=== PATIENT | male | born 1960 | race Caucasian/White ===

== ENCOUNTER 2016-08-04 13:50 | Emergency (ER) | payer OTHER ==
[2016-08-04] MEDS ORDERED: NORMAL SALINE 1000 ML 1,000 ML IV ONE (15:52)
--- NOTE | 2016-08-04 15:53 | ER Document Report ---
ED Medical Screen (RME) - General TRAVEL OUTSIDE OF THE [place] IN LAST 30 DAYS: No <KYLER AGUILAR - Last Filed: 08/04/16 16:13> <MARIALUISA DAVIS - Last Filed: 08/04/16 21:27> - General Chief Complaint: High Blood Sugar Stated Complaint: BLOOD SUGAR CONCERNS Time Seen by Provider: 08/04/16 15:40 Notes: 55-year-old male with history of diabetes and endocarditis (2006) presents to the ED complaining of vomiting, diarrhea, lower abdominal pain, dizziness, and lightheadedness for the past week. Patient is additionally complaining of a headache between bilateral temples, blurry vision, and shortness of breath with exertion. Patient denies any chest pain. Patient reports that today he woke up at 0300 and proceeded to vomiting profusely. Up until 1.5 months ago the patient's blood glucose was stable, however it has been running high since then. Patient reports that 2 nights ago his blood glucose was higher than 400, so he took his medications and rested in bed. Patient reports that he is being seen by the [facility] and is unable to get an immediate appointment with them. Patient also states that he did not take his medications today. (KYLER AGUILAR) - Related Data Allergies/Adverse Reactions: No Known Allergies Allergy (Unverified 09/28/15 14:52) Past Medical History - General Information source: Patient - Social History Family history: Reviewed & Not Pertinent - Past Medical History Cardiac Medical History: Reports: Hx Heart Murmur Endocrine Medical History: Reports: Hx Diabetes Mellitus Type 2 Renal/ Medical History: Denies: Hx Peritoneal Dialysis Psychiatric Medical History: Reports: Hx Depression <KYLER AGUILAR - Last Filed: 08/04/16 16:13> Review of Systems - Review of Systems Constitutional: No symptoms reported EENT: See HPI, Blurred vision Cardiovascular: See HPI, Dizziness, Lightheaded. denies: Chest pain Respiratory: See HPI, Short of breath Gastrointestinal: See HPI, Abdominal pain - lower Genitourinary: No symptoms reported Male Genitourinary: No symptoms reported Musculoskeletal: See HPI, Other - headache between bilateral temples Skin: No symptoms reported Hematologic/Lymphatic: No symptoms reported Neurological/Psychological: No symptoms reported -: Yes All other systems reviewed and negative <KYLER AGUILAR - Last Filed: 08/04/16 16:13> Physical Exam - General General appearance: Alert In distress: None - Respiratory Respiratory status: No respiratory distress Breath sounds: Normal - Cardiovascular Rhythm: Regular Heart sounds: Normal auscultation Murmur: No Friction rub: No Gallop: None auscultated - Abdominal Inspection: Obese Distension: No distension Bowel sounds: Normal Tenderness: Nontender <KYLER AGUILAR - Last Filed: 08/04/16 16:13> Course - Laboratory Result Diagrams: 08/04/16 16:54 08/04/16 16:54 <MARIALUISA DAVIS - Last Filed: 08/04/16 21:27> - Vital Signs Vital signs: Temp Pulse Resp BP Pulse Ox 97.8 F 97 18 132/52 H 95 08/04/16 13:56 08/04/16 13:56 08/04/16 13:56 08/04/16 13:56 08/04/16 13:56 - Laboratory Laboratory results interpreted by me: 08/04/16 08/04/16 08/04/16 16:54 16:54 16:54 WBC 24.6 H RBC 2.50 L Hgb 7.6 L Hct 22.8 L RDW 18.8 H Plt Count 30 L* Seg Neuts % (Manual) 9 L Band Neutrophils % 21 H Monocytes % (Manual) 1 L Metamyelocytes % 9 H Myelocytes % 17 H Promyelocytes % 2 H Immature Leukocytes % 9 H Abs Neuts (Manual) 14.3 H Abs Lymphs (Manual) 6.2 H Absolute Eos (Manual) 1.2 H Abs Basophils (Manual) 0.5 H Sodium 136.5 L Potassium 5.1 H Carbon Dioxide 16 L BUN 38 H Creatinine 1.68 H Est GFR ( Amer) 52 L Est GFR (Non-Af Amer) 43 L Glucose 248 H Creatine Kinase 54 L Urine Glucose (UA) >=500 H Crossmatch 08/04/16 18:37 WBC RBC Hgb Hct RDW Plt Count Seg Neuts % (Manual) Band Neutrophils % Monocytes % (Manual) Metamyelocytes % Myelocytes % Promyelocytes % Immature Leukocytes % Abs Neuts (Manual) Abs Lymphs (Manual) Absolute Eos (Manual) Abs Basophils (Manual) Sodium Potassium Carbon Dioxide BUN Creatinine Est GFR ( Amer) Est GFR (Non-Af Amer) Glucose Creatine Kinase Urine Glucose (UA) Crossmatch See Detail Scribe Documentation - Scribe Written by Zachary:: Zachary Corona, 08/04/2016 1639 acting as scribe for :: Cristhian <KYLER AGUILAR - Last Filed: 08/04/16 16:13>
--- NOTE | 2016-08-04 16:33 | RADIOLOGY REPORT (SQ) ---
EXAM DESCRIPTION: CHEST SINGLE VIEW COMPLETED DATE/TIME: 08/04/2016 4:25 pm REASON FOR STUDY: V/D, abd pain x 2 wks COMPARISON: None. EXAM PARAMETERS: NUMBER OF VIEWS: One view. TECHNIQUE: Single frontal radiographic view of the chest acquired. RADIATION DOSE: NA LIMITATIONS: None. FINDINGS: LUNGS AND PLEURA: No opacities, masses or pneumothorax. No pleural effusion. MEDIASTINUM AND HILAR STRUCTURES: No masses. Contour normal. HEART AND VASCULAR STRUCTURES: Heart normal in size. Normal vasculature. BONES: No acute findings. HARDWARE: None in the chest. OTHER: No other significant finding. IMPRESSION: NO ACUTE RADIOGRAPHIC FINDING IN THE CHEST. TECHNICAL DOCUMENTATION: JOB ID: [id number]
[2016-08-04 17:16] LABS: HEMATOCRIT 22.8 % (37.9-51.0); MEAN CORPUSCULAR HEMOGLOBIN 30.5 pg (27.0-33.4); MEAN CORPUSCULAR HGB CONC 33.4 g/dL (32.0-36.0); MEAN CORPUSCULAR VOLUME 91 fl (80-97); RED CELL DISTRIBUTION WIDTH 18.8 % (11.5-14.0); WHITE BLOOD COUNT 24.6 10^3/uL (4.0-10.5)
[2016-08-04 17:35] LABS: ALANINE AMINOTRANSFERASE 26 U/L (21-72); ALBUMIN 4.1 g/dL (3.5-5.0); ALKALINE PHOSPHATASE 67 U/L (38-126); ANION GAP 15 (5-19); ASPARTATE AMINO TRANSFERASE 41 U/L (17-59); BILIRUBIN,DIRECT 0.3 mg/dL (0.0-0.4); BILIRUBIN,TOTAL 0.7 mg/dL (0.2-1.3); BLOOD UREA NITROGEN 38 mg/dL (7-20); CALCIUM 9.4 mg/dL (8.4-10.2); CARBON DIOXIDE 16 mmol/L (22-30); CHLORIDE 106 mmol/L (98-107); CREATINE KINASE 54 U/L (55-170); CREATININE RESULT 1.68 mg/dL (0.52-1.25); GLUCOSE 248 mg/dL (75-110); LIPASE 109.9 U/L (23-300); POTASSIUM 5.1 mmol/L (3.6-5.0); SODIUM 136.5 mmol/L (137-145); TOTAL PROTEIN 7.3 g/dL (6.3-8.2)
[2016-08-04 17:39] LABS: APPEARANCE,URINE CLEAR; BILIRUBIN,URINE NEGATIVE (NEGATIVE); GLUCOSE, URINE >=500 mg/dL (NEGATIVE); KETONES,URINE NEGATIVE (NEGATIVE); LEUKOCYTE ESTERASE,URINE NEGATIVE (NEGATIVE); NITRITE,URINE NEGATIVE (NEGATIVE); PROTEIN,URINE NEGATIVE (NEGATIVE); UROBILINOGEN,URINE NEGATIVE mg/dL (<2.0)
[2016-08-04 17:48] LABS: CREATINE KINASE MB 0.46 ng/mL (<4.55)
[2016-08-04 17:50] LABS: TROPONIN I < 0.012 ng/mL
[2016-08-04 18:01] LABS: HEMOGLOBIN 7.6 g/dL (13.5-17.0)
[2016-08-04 18:24] LABS: BASOPHILS % (MANUAL) 2 % (0-2); EOSINOPHILS % (MANUAL) 5 % (0-6); LYMPHOCYTES % (MANUAL) 24 % (13-45); NUCLEATED RED BLOOD CELLS 8 /100 WBC (0); TOTAL CELLS COUNTED 100
[2016-08-04 18:27] LABS: ANISOCYTOSIS 2+; OVALOCYTES SLIGHT; POIKILOCYTOSIS 1+; POLYCHROMASIA SLIGHT; TEAR DROP CELLS SLIGHT
[2016-08-04 19:19] LABS: BAND NEUTROPHILS % (MANUAL) 21 % (3-5)
[2016-08-04] MEDS ORDERED: PIPERACILLIN/TAZOBACTAM 3.375 GM VIAL IV ONE (19:20)
[2016-08-04] MEDS ORDERED: NORMAL SALINE 250 ML IV PRN (19:20)
[2016-08-04] MEDS ORDERED: VANCOMYCIN HCL INJ 1000 MG VIAL IV ONE (19:20)
--- NOTE | 2016-08-04 19:20 | ER Document Report ---
ED General - General Chief Complaint: High Blood Sugar Stated Complaint: BLOOD SUGAR CONCERNS Time Seen by Provider: 08/04/16 15:40 Notes: Patient is a 55-year-old male with past medical history of diabetes, hypertension, obesity and a remote history of infective endocarditis in 2006 who presents with hyperglycemia, nausea, vomiting, diarrhea and diffuse generalized abdominal pain for the past 1 week. He came today due to concerns of hyperglycemia up to 480 at home. States his been taking medications as directed. Notes that he has had increasing nausea with associated diarrhea and abdominal pain that has been getting progressively worse over the last 1 week. Nothing improves or worsens his symptoms. He does describe his abdominal pain as a diffuse, cramping, moderate pain. No history of similar symptoms in the past. His also notes that the patient does appear increasingly pale over the last 2 weeks. Has not seen his primary care doctor regarding today's concerns. He denies any chest pain, shortness of breath or syncope. Had a fever. TRAVEL OUTSIDE OF THE [place] IN LAST 30 DAYS: No - Related Data Allergies/Adverse Reactions: No Known Allergies Allergy (Unverified 09/28/15 14:52) Past Medical History - General Information source: Patient - Social History Smoking Status: Never Smoker Chew tobacco use (# tins/day): No Frequency of alcohol use: None Drug Abuse: None Lives with: Spouse/Significant other Family History: Reviewed & Not Pertinent Patient has suicidal ideation: No Patient has homicidal ideation: No - Past Medical History Cardiac Medical History: Reports: Hx Hypercholesterolemia, Hx Hypertension, Hx Heart Murmur Endocrine Medical History: Reports: Hx Diabetes Mellitus Type 2 Renal/ Medical History: Denies: Hx Peritoneal Dialysis Psychiatric Medical History: Reports: Hx Depression Surgical Hx: Negative - Immunizations Hx Diphtheria, Pertussis, Tetanus Vaccination: No Review of Systems - Review of Systems Notes: Constitutional: Negative for fever. HENT: Negative for sore throat. Eyes: Negative for visual changes. Cardiovascular: Negative for chest pain. Respiratory: Negative for shortness of breath. Gastrointestinal: Positive for abdominal pain, vomiting and diarrhea Genitourinary: Negative for dysuria. Musculoskeletal: Negative for back pain. Skin: Negative for rash. Neurological: Negative for headaches, weakness or numbness. 10 point ROS negative except as marked above and in HPI. Physical Exam - Vital signs Vitals: Temp Pulse Resp BP Pulse Ox 97.8 F 97 18 132/52 H 95 08/04/16 13:56 08/04/16 13:56 08/04/16 13:56 08/04/16 13:56 08/04/16 13:56 Interpretation: Normal Notes: PHYSICAL EXAMINATION: GENERAL: Pale, slightly ill in appearance and in no acute distress HEAD: Atraumatic, normocephalic. EYES: Pupils equal round and reactive to light, extraocular movements intact, sclera anicteric, conjunctiva are normal. ENT: nares patent, oropharynx clear without exudates. Moderately dry mucous membranes. NECK: Normal range of motion, supple without lymphadenopathy LUNGS: Breath sounds clear to auscultation bilaterally and equal. No wheezes rales or rhonchi. HEART: Regular rate and rhythm without murmurs ABDOMEN: Soft, nontender, normoactive bowel sounds. No guarding, no rebound. No masses appreciated. EXTREMITIES: Normal range of motion, no pitting or edema. No cyanosis. NEUROLOGICAL: No focal neurological deficits. Moves all extremities spontaneously and on command. PSYCH: Normal mood, normal affect. SKIN: Warm, Dry, normal turgor, no rashes or lesions noted. Course - Re-evaluation Re-evalutation: 08/04/16 19:15 Patient presents with 1 week of diffuse abdominal pain with associated diarrhea and nausea as well as hyperglycemia. On initial assessment patient is overall nontoxic in appearance although does appear pale. Abdominal exam is without any focal tenderness, rebound or guarding. He denies any melena or hematochezia. No history of a GI bleed in the past. Patient's laboratories are notable for several findings including a prominent leukocytosis with a bandemia and neutrophilic predominance, a new anemia with a hemoglobin had a transfusion threshold, as well as severe thrombocytopenia with platelet only at 30. These are new findings for this patient and he has no history of significant anemia or thrombocytopenia in the past. He also has a mild acute kidney injury with a creatinine at 1.68 up from 1.12 in September 2015. 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 Based on patient's laboratory assessment, I am very concerned that patient may have a significant pathology ongoing at this time as his anemia pattern does not necessarily fit with an acute GI bleed and he has no history of this. Stool guaiac will be obtained. Diagnostic considerations include thrombotic thrombocytopenic purpura which could give both anemia, thrombocytopenia as well as acute kidney injury patient has no evidence of purpura on exam, no fever or neurologic symptoms. Hemolytic anemia in the setting of an endocarditis is another diagnostic consideration particularly given that patient has a prominent leukocytosis with bandemia implying a possible acute infection versus acute autoimmune reaction. Will type and cross 2 units, add on haptoglobin level, fibrinogen, obtain a CT of the abdomen pelvis with only IV contrast to evaluate for acute intra-abdominal infection given his diffuse abdominal pain and prominent leukocytosis, obtain blood cultures, and plan for admission. 08/04/16 21:31 Rectal exam negative, no gross blood, brown stool. I discussed with who is hematology on-call who is recommended transfer to a tertiary center as this could possibly be thrombotic thrombocytopenic purpura. Patient remained hemodynamically within normal limits. Awaiting contact back from [facility] 2300-patient has been accepted for transfer to [facility] by 08/05/16 02:48 Patient has remained hemodynamically within normal limits. Resting calmly. 08/05/16 02:51 - Vital Signs Vital signs: Temp Pulse Resp BP Pulse Ox 98 F 86 27 H 124/56 L 94 08/05/16 00:05 08/05/16 00:05 08/05/16 01:30 08/05/16 01:30 08/05/16 01:30 - Laboratory Result Diagrams: 08/04/16 16:54 08/04/16 16:54 Laboratory results interpreted by me: 08/04/16 08/04/16 08/04/16 16:54 16:54 16:54 WBC 24.6 H RBC 2.50 L Hgb 7.6 L Hct 22.8 L RDW 18.8 H Plt Count 30 L* Seg Neuts % (Manual) 9 L Band Neutrophils % 21 H Monocytes % (Manual) 1 L Metamyelocytes % 9 H Myelocytes % 17 H Promyelocytes % 2 H Immature Leukocytes % 9 H Abs Neuts (Manual) 14.3 H Abs Lymphs (Manual) 6.2 H Absolute Eos (Manual) 1.2 H Abs Basophils (Manual) 0.5 H Sodium 136.5 L Potassium 5.1 H Carbon Dioxide 16 L BUN 38 H Creatinine 1.68 H Est GFR ( Amer) 52 L Est GFR (Non-Af Amer) 43 L Glucose 248 H POC Glucose Lactate Dehydrogenase Creatine Kinase 54 L Urine Glucose (UA) >=500 H Crossmatch 08/04/16 08/04/16 08/05/16 18:37 19:35 01:45 WBC RBC Hgb Hct RDW Plt Count Seg Neuts % (Manual) Band Neutrophils % Monocytes % (Manual) Metamyelocytes % Myelocytes % Promyelocytes % Immature Leukocytes % Abs Neuts (Manual) Abs Lymphs (Manual) Absolute Eos (Manual) Abs Basophils (Manual) Sodium Potassium Carbon Dioxide BUN Creatinine Est GFR ( Amer) Est GFR (Non-Af Amer) Glucose POC Glucose 230 H Lactate Dehydrogenase 2151 H Creatine Kinase Urine Glucose (UA) Crossmatch See Detail - Diagnostic Test Radiology reviewed: Image reviewed, Reports reviewed Radiology results interpreted by me: 08/05/16 02:49 Chest x-ray: No acute infiltrate or pneumothorax - EKG Interpretation by Me Additional EKG results interpreted by me: 08/05/16 02:50 Sinus rhythm. Rate 89. No ST elevations or depressions. QTC is 429. Critical Care Note - Critical Care Note Total time excluding time spent on procedures (mins): 35 Comments: Critical care time spent obtaining history from patient or surrogate, discussions with consultants, development of treatment plan with patient or surrogate, evaluation of patient's response to treatment, examination of patient , ordering and performing treatments and interventions, ordering and review of laboratory studies, re-evaluation of patient's condition, ordering and review of radiographic studies and review of old charts Discharge - Discharge Clinical Impression: Hyperglycemia, Normocytic anemia Hemolytic anemia Qualifiers: Hemolytic anemia type: acquired, other Qualified Code(s): D59.8 - Other acquired hemolytic anemias Sepsis Qualifiers: Sepsis type: sepsis due to unspecified organism Qualified Code(s): A41.9 - Sepsis, unspecified organism Condition: Fair Disposition: [facility]
--- NOTE | 2016-08-04 20:18 | RADIOLOGY REPORT (SQ) ---
EXAM DESCRIPTION: CT ABD/PELVIS WITH IV ONLY COMPLETED DATE/TIME: 08/04/2016 8:01 pm REASON FOR STUDY: eval diffuse abdominal pain COMPARISON: 2015 TECHNIQUE: CT scan of the abdomen and pelvis performed using helical scanning technique with dynamic intravenous contrast injection. No oral contrast. Images reviewed with lung, soft tissue, and bone windows. Reconstructed coronal and sagittal MPR images reviewed. Delayed images for evaluation of the urinary system also acquired. All images stored on PACS. All CT scanners at this facility use dose modulation, iterative reconstruction, and/or weight based d osing when appropriate to reduce radiation dose to as low as reasonably achievable (ALARA). [facility]: Dose Right [facility]: CareDose [facility]: Dose Right [facility]: Teradose 4D [facility]: [employer] CONTRAST TYPE AND DOSE: contrast/concentration: Isovue 300.00 mg/ml; Total Contrast Delivered: 100.0 ml; Total Saline Delivered: 50.0 ml RENAL FUNCTION: Creatinine 1.68 RADIATION DOSE: 38.48. LIMITATIONS: None. FINDINGS: LOWER CHEST: No significant findings. No nodules or infiltrates. LIVER: Diffuse fatty infiltration the liver. There are no dominant masses. SPLEEN: Normal size. No focal lesions. PANCREAS: Again noted is a cystic lesion in the tail of the pancreas measuring 2.7 cm. Stable appear ance from previous study. GALLBLADDER: No identified stones by CT criteria. No inflammatory changes to suggest cholecystitis. ADRENAL GLANDS: No significant masses or asymmetry. RIGHT KIDNEY AND URETER: No solid masses. No significant calcifications. No hydronephrosis or hyd roureter. LEFT KIDNEY AND URETER: No solid masses. No significant calcifications. No hydronephrosis or hydr oureter. AORTA AND VESSELS: No aneurysm. No dissection. Renal arteries, SMA, celiac without stenosis. RETROPERITONEUM: No retroperitoneal adenopathy, hemorrhage or masses. BOWEL AND PERITONEAL CAVITY: No masses or inflammatory changes. No free fluid or peritoneal masses. APPENDIX: Normal. PELVIS: No mass or free fluid. Normal bladder. ABDOMINAL WALL: No masses. No hernias. BONES: Fusion of the lower lumbar facets. OTHER: No other significant finding. IMPRESSION: Stable cystic lesion tail of the pancreas. Fatty infiltration of the liver. TECHNICAL DOCUMENTATION: JOB ID: [id number] Quality ID # [id number]: Final reports with documentation of one or more dose reduction techniques (e.g., Au tomated exposure control, adjustment of the mA and/or kV according to patient size, use of iterative reconstruction technique) 2010 [employer]- All Rights Reserved
[2016-08-04 21:57] LABS: ADD ON TESTING BLD IN LAB ACKNOWLEDGE
[2016-08-04 22:14] LABS: LDH 2151 U/L (313-618)
[2016-08-05] MEDS ORDERED: PIPERACILLIN/TAZOBACTAM 3.375 GM VIAL IV ONE ×2 (02:48→15:27)
[2016-08-05] MEDS ORDERED: PHARMACY COMMUNICATION ORDER MC NR (06:00)
--- NOTE | 2016-08-05 09:18 | EKG REPORT ---
SEVERITY:- ABNORMAL ECG - SINUS OR ECTOPIC ATRIAL RHYTHM FIRST DEGREE AV BLOCK : Confirmed by: Fernando Cox 05-Aug-2016 09:17:23
[2016-08-05 10:44] LABS: HEMATOCRIT 25.6 % (37.9-51.0); HEMOGLOBIN 8.6 g/dL (13.5-17.0); HGB HCT DIFFERENCE 0.2; MEAN CORPUSCULAR HEMOGLOBIN 29.6 pg (27.0-33.4); MEAN CORPUSCULAR HGB CONC 33.6 g/dL (32.0-36.0); MEAN CORPUSCULAR VOLUME 88 fl (80-97); RED CELL DISTRIBUTION WIDTH 17.7 % (11.5-14.0); WHITE BLOOD COUNT 19.1 10^3/uL (4.0-10.5)
[2016-08-05 11:02] LABS: ALANINE AMINOTRANSFERASE 28 U/L (21-72); ALBUMIN 3.8 g/dL (3.5-5.0); ALKALINE PHOSPHATASE 50 U/L (38-126); ANION GAP 12 (5-19); ASPARTATE AMINO TRANSFERASE 43 U/L (17-59); BILIRUBIN,DIRECT 0.3 mg/dL (0.0-0.4); BILIRUBIN,TOTAL 1.1 mg/dL (0.2-1.3); BLOOD UREA NITROGEN 28 mg/dL (7-20); CALCIUM 9.3 mg/dL (8.4-10.2); CARBON DIOXIDE 17 mmol/L (22-30); CHLORIDE 104 mmol/L (98-107); CREATININE RESULT 1.44 mg/dL (0.52-1.25); GLUCOSE 280 mg/dL (75-110); SODIUM 133.1 mmol/L (137-145); TOTAL PROTEIN 6.7 g/dL (6.3-8.2)
[2016-08-05 12:42] LABS: BAND NEUTROPHILS % (MANUAL) 12 % (3-5); BASOPHILS % (MANUAL) 0 % (0-2); EOSINOPHILS % (MANUAL) 4 % (0-6); LYMPHOCYTES % (MANUAL) 19 % (13-45); NUCLEATED RED BLOOD CELLS 6 /100 WBC (0); TOTAL CELLS COUNTED 100
[2016-08-05 12:44] LABS: ANISOCYTOSIS 2+; HYPOCHROMASIA SLIGHT; OVALOCYTES 1+; PATH REVIEW PATHOLOGIST REVIEWED; POIKILOCYTOSIS 1+
--- NOTE | 2016-08-05 16:41 | ER Document Report ---
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 This information was passed on to [facility], and they report that he does have a bed and they will be coming to get him soon. I explained this to the patient, and he reports he had a daughter with leukemia that had bone marrow transplant, who ultimately succumbed at the age of 31 to her leukemia.
[2016-08-05 16:59] VITALS: BP 128/62
[2016-08-05] MEDS ORDERED: VANCOMYCIN HCL 1,000 MG in DEXTROSE 5%-WATER 250 ML IV SCH (18:00)
== END 2016-08-05 17:20 | disposition short-term general hospital (02) ==
LOC: ER 13:50
DX: E11.65 Type 2 diabetes mellitus with hyperglycemia (principal); D64.9 Anemia, unspecified; D59.8 Other acquired hemolytic anemias; A41.9 Sepsis, unspecified organism; I10 Essential (primary) hypertension; E66.9 Obesity, unspecified; R11.2 Nausea with vomiting, unspecified; R19.7 Diarrhea, unspecified; R10.84 Generalized abdominal pain
CPT/HCPCS: 93005; 86900; 86901; 36415; 87040; 82553; 36430; 86870; 86850; 86922; 82962; 82550; 83010; 83615; 83690; 85025; 85384; 85362; 82272; 80053; 81001; 84484; 86920; 71010; 74177; 93010; P9016; J7030; J3370; J2543 ×2; 96361; 96365; 96366; 96367; 99285